=== PATIENT | male | born 1950 | race African-American/Black ===

== ENCOUNTER 2024-10-30 10:57 | Emergency (ER) | payer OTHER ==
[~2024-10-30] VITALS: Ht 175.3 cm; Wt 102.0 kg
[2024-10-30 11:00] VITALS: O2SAT 97
[2024-10-30 11:31] LABS: HEMATOCRIT. 36.4 % (42.0-52.0); HEMOGLOBIN. 11.9 g/dL (14.0-18.0); MEAN PLATELET VOLUME 8.8 fl (7.4-10.4); PLATELET 138 x1000/uL (130-400); RED BLOOD CELL COUNT 4.32 mill/uL (4.7-6.1); RED CELL DISTRIBUTION WIDTH 15.6 % (11.6-14.6)
[2024-10-30 11:48] LABS: CREATININE 1.1 mg/dL (0.6-1.3); UREA NITROGEN BLOOD 13 mg/dL (9-23)
[2024-10-30 11:50] LABS: TROPONIN I HIGH SENSITIVITY < 4 ng/L (3.0-53)
[2024-10-30 13:24] LABS: TROPONIN I HIGH SENSITIVITY < 4 ng/L (3.0-53)
[2024-10-30 14:15] LABS: LYMPHOCYTES % MANUAL 98.0 % (20.0-50.0); MONOCYTES % MANUAL 1.0 % (2.0-8.0); NEUTROPHILS % MANUAL 1.0 % (45.0-75.0)
[2024-10-30 14:16] LABS: PLATELET ESTIMATE NORMAL
[2024-10-30 14:25] VITALS: BP 136/78; PULSE 62; RESP 12; TEMP 36.6; O2SAT 96
[2024-10-30] MEDS ORDERED: IOHEXOL-350 100 ML BOTTLE ONE (15:42)
== END 2024-10-30 14:51 | disposition home or self-care (01) ==
LOC: ER 11:24 → CMPBEDREQ 14:59
DX: R07.89 Other chest pain (principal); E78.00 Pure hypercholesterolemia, unspecified; I10 Essential (primary) hypertension; E78.49 Other hyperlipidemia; C91.10 Chronic lymphocytic leukemia of B-cell type not having achieved remission; Z98.890 Other specified postprocedural states; Z86.79 Personal history of other diseases of the circulatory system
CPT/HCPCS: 99285; 71275; 71045; 80048; 85025; 84484; 36415; Q9967